=== PATIENT | male | born 1960 | race Caucasian/White ===

== ENCOUNTER → 2019-04-02 14:14 | Outpatient (CLI) | payer OTHER, SELFPAY ==
[2017-05-03 11:53] VITALS: BMI 30.5
[2019-04-02 15:57] LABS: Absolute Lymphocyte Count 2.17 X10^3/uL (0.83-4.51); Absolute Neutrophil Count 3.4 X10^3/uL (2.0-7.7); Basophil# 0.07 X10^3/uL; Basophil% 1.1 % (0-1); Eosinophil# 0.21 X10^3/uL; Eosinophils% 3.2 % (0-5); Hematocrit 50.7 % (40-54); Hemoglobin 16.5 g/dL (13.0-16.5); Lymphocyte # 2.17 X10^3/ul (4.0); Lymphocyte % 32.7 % (19-41); Mean Corp Hgb Conc 32.5 g/dL (32-36); Mean Corpuscular Hgb 27.9 pg (27.0-32.0); Mean Corpuscular Volume 85.8 fL (80-94); Mean Platelet Vol. 10.1 fl (6.2-12.0); Monocyte# 0.75 X10^3/uL; Monocyte% 11.3 % (0-10); NRBC Flagged by Analyzer 0 % (0-5); Neutrophil # 3.43 X10^3/uL (2.7-7.7); Neutrophil % 51.5 % (47-70); Platelet Count 277 K/mm3 (150-450); RBC Distribution Width CV 13.2 % (11.6-14.6); RBC Distribution Width SD 40.9 fl (35.1-43.9); Red Blood Count 5.91 M/mm3 (4.6-6.2); White Blood Count 6.6 K/mm3 (4.4-11.0)
[2019-04-02 16:35] LABS: ALB/GLOB Ratio 1.1 RATIO (0.9-2.4); AST(SGOT) 22 U/L (15-37); Alanine Aminotransfer ALT/SGPT 33 U/L (16-61); Albumin, Serum 3.9 g/dL (3.2-5.0); Alkaline Phosphatase 102 U/L (45-117); Anion Gap 5 (5-15); BUN 14 mg/dL (7-18); BUN/Creat Ratio 18.3 RATIO (10-20); Calcium,Total 8.7 mg/dL (8.5-10.1); Chloride 103 mmol/L (98-107); Creatinine, Serum 0.77 mg/dL (0.70-1.30); EST Glomerular Filtration Rate 111 mL/min (>60); Est Glom Filt Rate - Afr Amer 134 mL/min (>60); Globulin 3.4 g/dL (2.2-4.2); Glucose 93 mg/dL (74-106); Potassium 3.8 mmol/L (3.5-5.1); Protein, Total 7.3 g/dL (6.4-8.2); Sodium Level 137 mmol/L (136-145); T4 Free Direct 1.02 ng/dL (0.76-1.46); Thyroid Stim Hormone (TSH) 1.56 uIU/mL (0.358-3.74)
== END ==
PROVIDERS: Family Provider Family Medicine; PCP Family Medicine; Visit Provider Family Medicine
DX: R53.83 Other fatigue (principal)
CPT/HCPCS: 36415; 80053; 84439; 84443; 85025

== ENCOUNTER → 2022-03-02 | Outpatient (CLI) | payer OTHER, SELFPAY | END | disposition home or self-care (01) | PROVIDERS: PCP Family Medicine; Visit Provider Family Medicine | DX: Z01.83 Encounter for blood typing (principal) | CPT/HCPCS: 36415; 86900; 86901 ==

== ENCOUNTER → 2022-03-22 | Outpatient (CLI) | payer OTHER, SELFPAY ==
--- NOTE | 2022-03-22 13:52 | STE_ITS ---
Reason For Study: CHEST PAIN, DYSPNEA Stress Results Protocol: Jad Protocol Maximum Predicted HR: 160 bpm Target HR: 136 bpm % Maximum Predicted HR: 85 % DurationHeart Rate Stage (mm:ss) (bpm) BP Comment BASELINE 58 122/68 STAGE 1 3:00 92 142/62 STAGE 2 3:00 103 142/58 STAGE 3 3:00 123 152/78A LITTLE DISCOMFORT IN CENTER OF CHEST STAGE 4 1:30 136 / INCREASED SOB AND DISCOMFORT RECOVERY 91 128/78 Stress Duration: 10:30 mm:ss Maximum Stress HR: 136 bpm Baseline Echocardiogram Findings Stress Echo Wall motion Data Resting WM Intermediate WM Stress WM Doppler Measurements & Calculations MV E max maite: 58.1 cm/sec MV A max maite: 80.3 cm/sec MV E/A: 0.72 ECHO/Stress Test Echo w/o Contrast Interpretation Summary Stress echo. 61-year-old man with a history of chest pain. Stress electrocardiogram. Resting EKG demonstrates normal sinus rhythm with a rate of 72 bpm normal inter vals are noted resting blood pressure is 142/62 mmHg. The patient exercised according to regul ar Jad protocol for total duration of 11 minutes and 22 seconds completing 2 minutes and 22 seconds into stage IV of the Jad protocol. The maximum heart rate attained was 136 bpm which was 85% of ma x impacted heart rate the maximum workload was 13.4 metabolic equivalents. At rest there were no ST o r T wave changes noted to suggest ischemia and at peak exercise upsloping ST changes were noted with did not meet the criteria for ischemia. Minimal chest discomfort was noted at peak exercise. The peak blood pressure was 152/78 mmHg. Stress echocardiogram. Resting echocardiogram demonstrated an ejection fraction of approximately 60%. Thickened aortic valve leaflet was noted. At peak exercise there was thickening of all sanchez and reduction of the ventricular cavity size peaking at 75%. No wall motion abnormalities were noted . No ischemia was present. Conclusion: Exercise stress echo with no EKG or echocardiographic criteria for ischemia. Good functional aerobic capacity. Ordering Physician: Wilian Crawford Referring Physician: Wilian Crawford Performed By: Ciera Escalante, GUERITA, RVT
== END | disposition home or self-care (01) ==
PROVIDERS: PCP Family Medicine; Referring Provider Family Medicine; Visit Provider Family Medicine
DX: R07.9 Chest pain, unspecified (principal); R06.00 Dyspnea, unspecified
CPT/HCPCS: 93017; 93350